=== PATIENT | male | born 1990 | race Caucasian/White ===

== ENCOUNTER 2017-05-12 08:17 | Emergency (ER) | payer BC, OTHER ==
[2017-05-12] MEDS ORDERED: ASPIRIN 81 MG CHEW TAB PO ONE (08:43)
--- NOTE | 2017-05-12 08:51 | ED Physician Documentation ---
General Adult - HISTORIAN Historian: patient - HPI Stated Complaint: palpitations Chief Complaint: General Adult Onset: days ago Timing: still present Severity: moderate Further Comments: yes (Pt is a 26 yo male with heart palpataions. No pain. Pt is not a smoker. He does not use excessive caffeine.) - ROS CONST: no problems EYES/ENT: none CVS/RESP: other (palpitations) GI/: none MS/SKIN/LYMPH: none - PAST HX Past History: none Allergies/Adverse Reactions: Allergies Allergy/AdvReac Type Severity Reaction Status Date / Time No Known Allergies Allergy Verified 05/12/17 08:52 Home Medications: Ambulatory Orders Medication Instructions Recorded Amoxicillin [Amoxil] 500 mg PO TID #42 capsule 10/11/14 Doxepin HCl [Sinequan] 25 mg PO HS #30 capsule 10/11/14 Hydroxyzine Pamoate [Vistaril] 50 mg PO TID PRN #60 capsule 10/11/14 Omeprazole 20 mg PO [id number] #30 capsule. 10/11/14 Propranolol HCl [Inderal] 40 mg PO TID #90 tablet 10/11/14 - SOCIAL HX Smoking History: non-smoker - FAMILY HX Family History: No - VITAL SIGNS Vital Signs: Vital Signs Temp Pulse Resp BP Pulse Ox 125/87 10/11/14 18:50 - REVIEWED ASSESSMENTS Nursing Assessment Reviewed: Yes Vitals Reviewed: Yes Progress - EKG/XRAY/CT EKG: NSR (HR=76; normal axis; normal [place] interval; normal EKG.) XRAY: chest ( No acute pulmonary process.) ED Results Lab/Radiology - Orders Orders: ED Orders Category Date Time Status Continuous EKG monitoring Q30M Care 05/12/17 08:44 Active Continuous Pulse Oximetry Q30M Care 05/12/17 08:44 Active CHEST 1 VIEW [RAD] Stat Exams 05/12/17 08:44 Ordered CBC/PLATELET/DIFF Routine Lab 05/12/17 08:44 Received CKMB Stat Lab 05/12/17 08:50 Received CMP Routine Lab 05/12/17 08:44 Received CREATINE KINASE Routine Lab 05/12/17 08:44 Received TROPONIN I (cTnI) Stat Lab 05/12/17 08:50 Received Aspirin Med 05/12/17 08:43 Discontinued 324 mg PO NOW ONE Oxygen Daily Oxygen 05/12/17 08:45 Ordered EKG WITH COMPARISON Stat Ther 05/12/17 08:44 Ordered General Adult Physical Exam - PHYSICAL EXAM GENERAL APPEARANCE: mild distress EENT: pharynx normal NECK: normal inspection, supple RESPIRATORY: no resp distress, chest non-tender, breath sounds normal CVS: reg rate & rhythm, heart sounds normal, no murmur ABDOMEN: soft, no organomegaly, normal bowel sounds BACK: normal inspection, no CVA tenderness SKIN: warm/dry, normal color EXTREMITIES: non-tender, normal range of motion, no evidence of injury NEURO: oriented X3, motor nml, sensation nml Discharge Clincal Impression: Heart palpitations Referrals: Alaina Adan FNP [NURSE PRACTITIONER] - Home Medications: Ambulatory Orders Amoxicillin [Amoxil] 500 mg PO TID #42 capsule 10/11/14 Doxepin HCl [Sinequan] 25 mg PO HS #30 capsule 10/11/14 Hydroxyzine Pamoate [Vistaril] 50 mg PO TID PRN #60 capsule 10/11/14 Omeprazole 20 mg PO [id number] #30 capsule. 10/11/14 Propranolol HCl [Inderal] 40 mg PO TID #90 tablet 10/11/14 Condition: Good Disposition: 01 HOME, SELF-CARE Decision to Admit: NO Decision Time: 10:29
[2017-05-12 08:54] LABS: BASOPHILS % 0.7 (0.0-1.5); EOSINOPHILS % 1.7 % (0.0-6.8); MEAN CORPUSCULAR HEMOGLOBIN 31.5 pg (28.0-34.0); MONOCYTES % 4.8 % (0.0-11.0)
[2017-05-12 09:16] LABS: eGFR (African) > 60; eGFR (Non-African) > 60
[2017-05-12 10:51] VITALS: BP 113/85
--- NOTE | 2017-05-12 10:58 | Diagnostic Imaging Report ---
MONA BOTELLO [facility] [address] [facility] [address] [address] Report Submission Date: May 12, 2017 9:02:05 AM CDT Patient Study Name: TACHO VYAS Date: May 12, 2017 8:44:41 AM CDT Modality Type: CR Gender: M Description: CHEST : 86 Institution: [facility] Physician: MONA BOTELLO Examination: Portable chest History: Chest discomfort Findings: Single view of the chest demonstrates a normal cardiac and mediastinal silhouette. Lung omalley demonstrate some mild perihilar haziness. No effusion. Osseous structures are appropriate for age. Impression: Mild perihilar haziness. No effusion. Could represent early infiltrate. Recommend obtaining formal PA and lateral film to better evaluate. Electronically signed on May 12, 2017 9:02:05 AM CDT by: Laureano TAYLOR
--- NOTE | 2017-05-12 10:58 | Diagnostic Imaging Report ---
MONA BOTELLO [facility] [address] [facility] [address] [address] Report Submission Date: May 12, 2017 10:18:59 AM CDT Patient Study Name: TACHO VYAS Date: May 12, 2017 9:43:00 AM CDT Modality Type: CR Gender: M Description: CHEST : 86 Institution: [facility] Physician: MONA BOTELLO Examination: PA and lateral chest. History: Evaluate lung omalley. Comparison exam: Portable chest dated 12 May 2017 Findings: PA lateral chest demonstrate a normal cardiac and mediastinal silhouette. Mild right pericardial haziness: due to pectus excavatum identified on lateral view. No focal infiltrate. No effusion. No blunting of the costophrenic margins. Osseous structures are otherwise appropriate for age. Impression: No acute pulmonary process. Electronically signed on May 12, 2017 10:18:59 AM CDT by: Laureano TAYLOR
== END 2017-05-12 10:47 | disposition home or self-care (01) ==
LOC: ED 08:17
DX: R00.2 Palpitations (principal)
CPT/HCPCS: 71010; 71020; 80053; 82550; 82553; 84484; 85025; 99283; S1016